=== PATIENT | female | born 1955 | race Caucasian/White ===

== ENCOUNTER 2021-05-31 19:06 | Emergency (ER) | payer MEDICARE, BC, OTHER ==
[2021-05-31] MEDS ORDERED: Sodium Chloride 0.9% 10 ML Syringe FLUSH PRN (19:42)
--- NOTE | 2021-05-31 19:46 | EDM.PDOC ---
ED HPI GENERAL MEDICAL PROBLEM - General Stated Complaint: SOS COVID + Time Seen by Provider: 05/31/21 19:29 Source of Information: Reports: Patient - History of Present Illness INITIAL COMMENTS - FREE TEXT/NARRATIVE: Simran is a 65 y/o female who comes to the ER with complaints of mild SOB and not being able to cough up mucous. She is not really eating much and has been having diarrhea. She was diagnosed with COVID on 05/22/21 at the [facility] and took a course of Azithromycin. She has not taken any other meds during this time. She is concerned that she is getting dehydrated. - Related Data Allergies Allergy/AdvReac Type Severity Reaction Status Date / Time acetaminophen Allergy Hives Verified 05/31/21 20:21 adhesive tape Allergy Rash Verified 05/31/21 20:21 ciprofloxacin Allergy Hives Verified 05/31/21 20:21 codeine Allergy Hives Verified 05/31/21 20:21 ergotamine Allergy Dizziness Verified 05/31/21 20:21 furosemide Allergy Rash Verified 05/31/21 20:21 hydromorphone [From Dilaudid] Allergy Rash Verified 05/31/21 20:21 latex Allergy Rash Verified 05/31/21 20:21 lisinopril Allergy Swelling Verified 05/31/21 20:21 losartan Allergy Shortness Verified 05/31/21 20:21 of Breath phenobarbital Allergy Rash Verified 05/31/21 20:21 povidone-iodine Allergy Hives Verified 05/31/21 20:21 propoxyphene Allergy Rash Verified 05/31/21 20:21 triamcinolone Allergy Rash Verified 05/31/21 20:21 Home Meds: Home Meds Digoxin 0.5 tab PO DAILY 05/31/21 [History] Docusate Sodium [Colace] 100 mg PO DAILY 05/31/21 [History] Levothyroxine [Synthroid] 88 mcg PO ACBREAKFAST 05/31/21 [History] Multivitamin with Iron [Daily Sarah with Iron] 1 each PO DAILY 05/31/21 [History] Propylene Glycol/PEG 400/Pf [Systane 0.3-0.4% Eye Drops] 1 each OP ASDIRECTED 05/31/21 [History] carvediloL [Carvedilol] 6.25 mg PO BID 05/31/21 [History] Review of Systems - Review of Systems Review Of Systems: See Below Constitutional: Reports: Weakness Eyes: Reports: No Symptoms Ears: Reports: No Symptoms Nose: Reports: No Symptoms Mouth/Throat: Reports: No Symptoms Respiratory: Reports: Shortness of Breath, Cough Cardiovascular: Reports: No Symptoms GI/Abdominal: Reports: Decreased Appetite, Diarrhea, Nausea Genitourinary: Reports: No Symptoms Musculoskeletal: Reports: No Symptoms Skin: Reports: No Symptoms Neurological: Reports: No Symptoms Psychiatric: Reports: No Symptoms ED EXAM, GENERAL - Physical Exam Exam: See Below General Appearance: Alert, WD/WN, No Apparent Distress (Thin elderly female, sitting quietly on ER cart.) Eye Exam: Bilateral Eye: PERRL Ears: Normal Canal, Hearing Grossly Normal Ear Exam: Right Ear: TM Perforation (Chronic) Nose: Normal Inspection, Normal Mucosa Throat/Mouth: Normal Inspection, Normal Lips, Normal Voice Head: Atraumatic, Normocephalic Neck: Normal Inspection, Supple Respiratory/Chest: No Respiratory Distress, Lungs Clear, Chest Non-Tender Cardiovascular: Normal Peripheral Pulses, Regular Rate, Rhythm, No Murmur GI/Abdominal: Normal Bowel Sounds, Soft, Non-Tender (Female) Exam: Deferred Rectal (Female) Exam: Deferred Back Exam: Normal Inspection, Full Range of Motion Extremities: Normal Inspection, Normal Range of Motion, Normal Capillary Refill Neurological: Alert, Oriented, CN II-XII Intact, Normal Cognition, No Motor/Sensory Deficits Psychiatric: Normal Affect, Normal Mood Skin Exam: Warm, Dry, Intact, Normal Color Lymphatic: No Adenopathy Course - Vital Signs Text/Narrative:: 1928 The patient was seen by the SALES AND BUSINESS DEVELOPMENT MANAGER. Labs ordered. 2030 Labs reviewed. Will give her a liter of LR then discharge to home. Advised treating COVPERNELL sx with OTC meds and Albuterol inhaler sent home with her also. She left the ER in stable condition after written instructions were given. Last Recorded V/S: Last Vital Signs Temp 36.7 C 05/31/21 20:10 Pulse 95 05/31/21 20:10 Resp 16 05/31/21 20:10 BP 134/53 L 05/31/21 20:10 Pulse Ox 100 05/31/21 20:10 - Orders/Labs/Meds Orders: Active Orders 24 hr Category Date Time Status Lactated Ringers [Ringers, Lactated] 1,000 ml Med 05/31/21 20:36 Ordered IV ONETIME Sodium Chloride 0.9% [Saline Flush] Med 05/31/21 19:42 Active 10 ml FLUSH ASDIRECTED PRN Saline Lock Insert [OM.PC] Stat Oth 05/31/21 19:43 Ordered Medication Orders Lactated Ringer's (Ringers, Lactated) 1,000 mls @ 999 mls/hr IV ONETIME ONE Stop: 05/31/21 21:36 Sodium Chloride (Sodium Chloride 0.9% 10 Ml Syringe) 10 ml FLUSH ASDIRECTED PRN PRN Reason: Keep Vein Open Labs: Laboratory Tests 05/31/21 05/31/21 05/31/21 Range/Units 19:42 19:55 19:55 WBC 9.6 (4.0-10.0) x10^3/uL RBC 3.97 L (4.00-5.50) x10^6/uL Hgb 12.6 (12.0-16.0) g/dL Hct 36.0 (33.0-47.0) % MCV 90.7 (78.0-93.0) fL MCH 31.7 (26.0-32.0) pg MCHC 35.0 (32.0-36.0) g/dL RDW Coeff of Sanjuanita 14.6 (10.0-15.0) % Plt Count 322 (130-400) x10^3/uL Add Manual Diff Yes Neutrophils % (Manual) 68 (50-80) % Band Neutrophils % 5 (0-6) % Lymphocytes % (Manual) 16 L (25-50) % Reactive Lymphs % 2 H (0) % Monocytes % (Manual) 8 (2-11) % Basophils % (Manual) 1 (0-1) % Absolute Neutrophils 7.0 (1.8-7.7) x10^3/uL Lymphocytes # (Manual) 1.7 (1.0-4.8) x10^3/uL Monocytes # (Manual) 0.8 (0.0-0.8) x10^3/uL Basophils # (Manual) 0.1 (0.0-0.2) x10^3/uL Vacuolated Monocytes 1+ slight H Toxic Granulation 1+ slight H Pelger-Huet Cells Present H Platelet Estimate Adequate Poikilocytosis 2+ moderate H Target Cells 2+ moderate H Henriquez-[place] Bodies 2+ moderate H Lexi Cells 1+ slight H Acanthocytes (Spur) 2+ moderate H Sodium 138 (136-145) mmol/L Potassium 5.5 H (3.5-5.1) mmol/L Chloride 104 (98-107) mmol/L Carbon Dioxide 25 (21-32) mmol/L Anion Gap 14.5 (5-15) mmol/L BUN 33 H (7-18) mg/dL Creatinine 1.1 H (0.55-1.02) mg/dL Est Cr Clr Drug Dosing TNP Estimated GFR (MDRD) 50 Glucose 97 (70-99) mg/dL Calcium 9.0 (8.5-10.1) mg/dL Corrected Calcium 9.7 (8.5-10.1) mg/dL Total Bilirubin 1.1 H (0.2-1.0) mg/dL AST 96 H (15-37) U/L ALT 71 H (14-59) U/L Alkaline Phosphatase 87 (46-116) U/L Total Protein 6.9 (6.4-8.2) g/dL Albumin 3.1 L (3.4-5.0) g/dL Globulin 3.8 Albumin/Globulin Ratio 0.82 Urine Color Yellow (YELLOW) Urine Appearance Clear (CLEAR) Urine pH 5.5 (5.0-8.0) Ur Specific Hobson 1.010 Urine Protein 30 H (NEGATIVE) mg/dL Urine Glucose (UA) Negative (NEGATIVE) mg/dL Urine Ketones Negative (NEGATIVE) mg/dL Urine Occult Blood Trace-intact H (NEGATIVE) Urine Nitrite Negative (NEGATIVE) Urine Bilirubin Negative (NEGATIVE) Urine Urobilinogen 0.2 (0.2) EU/dL Ur Leukocyte Esterase Negative (NEGATIVE) U Hyaline Cast (Auto) Rare Urine RBC 0-5 (NOT SEEN) /HPF Urine WBC Not seen (NOT SEEN) /HPF Ur Squamous Epith Cells Rare (NOT SEEN) /HPF Urine Bacteria Not seen (NOT SEEN) /HPF Urine Mucus Not seen (NOT SEEN) /LPF Meds: Medications Generic Name Dose Route Start Last Admin Trade Name Freq PRN Reason Stop Dose Admin Lactated Ringer's 1,000 mls @ 999 mls/hr 05/31/21 20:36 Ringers, Lactated IV 05/31/21 21:36 ONETIME ONE Sodium Chloride 10 ml 05/31/21 19:42 Sodium Chloride 0.9% 10 Ml Syringe FLUSH ASDIRECTED PRN Keep Vein Open Departure - Departure Time of Disposition: 20:42 Disposition: Home, Self-Care 01 Condition: Good Clinical Impression: COVID-19 - Discharge Information Instructions: Symptoms of COVID-19 - CDC (09/17/2020), Dehydration, Elderly, [id number] Referrals: Aneta Rojas, [id number] CONSULTANT [Primary Care Provider] - Additional Instructions: -Albuterol inhaler 1-2 pufs every 4 hours as needed for cough #18gm(ER) -Over the counter meds as helpful. -Guafenisen DM may help you cough up the sputum you are feeling in your throat. -Drink plenty of fluids. -Rest -Follow up with PCP for recheck or return to the ER as needed Sepsis Event Note (ED) - Focused Exam Vital Signs: Vital Signs Temp Pulse Resp BP Pulse Ox 05/31/21 20:10 36.7 C 95 16 134/53 L 100 - Problem List & Annotations (1) COVID-19 SNOMED Code(s): 592614430 Code(s): U07.1 - COVID-19 Status: Acute Current Visit: Yes Annotation/Comment:: Lungs clear, sats 99-100% on room air. IV fluids given. Sent home with Albuterol inhaler. Advised OTC meds as helpful. - Problem List Review Problem List Initiated/Reviewed/Updated: Yes - My Orders Last 24 Hours: My Active Orders 05/31/21 19:42 Sodium Chloride 0.9% [Saline Flush] 10 ml FLUSH ASDIRECTED PRN 05/31/21 19:43 Saline Lock Insert [OM.PC] Stat 05/31/21 20:36 Lactated Ringers [Ringers, Lactated] 1,000 ml IV ONETIME - Assessment/Plan Last 24 Hours: My Active Orders 05/31/21 19:42 Sodium Chloride 0.9% [Saline Flush] 10 ml FLUSH ASDIRECTED PRN 05/31/21 19:43 Saline Lock Insert [OM.PC] Stat 05/31/21 20:36 Lactated Ringers [Ringers, Lactated] 1,000 ml IV ONETIME Plan: See above
[2021-05-31 20:19] LABS: CHLORIDE,CL 104 mmol/L (98-107); SODIUM,NA 138 mmol/L (136-145)
[2021-05-31 20:20] LABS: ANION GAP 14.5 mmol/L (5-15)
[2021-05-31] MEDS ORDERED: Lactated Ringers 1,000 ML IV ONE (20:36)
[2021-05-31] MEDS ORDERED: Take Home: Albuterol 18 GM Inhaler, 1 Inhaler Pack INH PRN (20:41)
== END 2021-05-31 22:30 | disposition home or self-care (01) ==
LOC: VM.ED 19:06
DX: U07.1 COVID-19 (principal); Z88.6 Allergy status to analgesic agent; Z91.048 Other nonmedicinal substance allergy status; Z88.1 Allergy status to other antibiotic agents; Z88.5 Allergy status to narcotic agent; Z88.8 Allergy status to other drugs, medicaments and biological substances; Z91.040 Latex allergy status; Z79.899 Other long term (current) drug therapy
CPT/HCPCS: 80053; 81001; 85025; 99283; 99284; A9270-GY; J7120